=== PATIENT | female | born 1985 | race Caucasian/White ===

== ENCOUNTER → 2024-06-20 15:36 | Outpatient (REF) | payer OTHER, SELFPAY | LOC: WDC 15:36 | PROVIDERS: ATTENDING PHYSICIAN Advanced Practice Midwife; FAMILY PHYSICIAN Internal Medicine | DX: Z12.31 Encounter for screening mammogram for malignant neoplasm of breast (principal) | CPT/HCPCS: 77063; 77067 ==

== ENCOUNTER 2024-11-21 18:14 | Emergency (ER) | payer OTHER, SELFPAY ==
[2024-11-21 18:16] VITALS: BP 136/88
[2024-11-21 18:33] LABS: % Basophils 0.9 % (0-2); % Eosinophils 8.4 % (0-6); % Immature Granulocytes 0.1 % (0-0.5); % Lymphocytes 38.4 % (20.5-51.1); % Monocytes 7.5 % (1.7-9.3); % Neutrophils 44.7 % (42.2-75.2); Absolute Basophils 0.1 10^3/uL (0-0.2); Absolute Eosinophils 0.7 10^3/uL (0-0.7); Absolute Monocytes 0.6 10^3/uL (0.1-0.6); Absolute Neutrophils 3.4 10^3/uL (1.4-6.5); Hematocrit 41.3 % (37.0-47.0); Mean Corp Hgb Conc. 33.9 g/dL (33.0-37.0); Mean Corpuscular Hgb 31.1 pg (27.0-31.0); Mean Corpuscular Volume 91.8 fL (81.0-99.0); Mean Platelet Volume 9.5 fL (7.4-10.4); Nucleated Red Blood Cells % 0 %; Platelet Count 233 10^3/uL (130-400); Red Cell Dist. Width 12.9 % (11.5-14.5); White Blood Cell Count 7.7 10^3/uL (4.8-10.8)
[2024-11-21 18:47] LABS: HCG, Serum Qualitative Screen Negative
[2024-11-21 18:51] LABS: ALT (SGPT) 23 U/L (0-35); AST (SGOT) 25 U/L (14-36); Albumin 5.1 g/dl (3.5-5.0); Alkaline Phosphatase 52 U/L (38-126); Blood Urea Nitrogen 12 mg/dl (7-17); Calcium 9.6 mg/dl (8.4-10.2); Carbon Dioxide 24 mmol/L (22-30); Chloride 110 mmol/L (98-107); Glucose 90 mg/dl (70-99); Potassium 4.5 mmol/L (3.5-5.1); Sodium 141 mmol/L (135-145); Total Bilirubin 0.4 mg/dl (0.2-1.3); Total Protein 7.9 g/dl (6.3-8.2); eGFR > 60.00
[2024-11-21 18:52] LABS: Lipase 83 U/L (23-300)
[2024-11-21 23:30] VITALS: BMI 24.1
[2024-11-21] MEDS: PEPCID 20 MG PO (23:37)
[2024-11-21] MEDS: CARAFATE SUSPENSION 1 GM PO (23:37)
[2024-11-21 23:41] VITALS: BP 124/84
--- NOTE | 2024-11-21 23:42 | ED.GENMED ---
History of Present Illness
General
Chief Complaint: Abdominal Pain
Source: patient
Exam Limitations: none
Time Seen by Provider: 11/21/24 22:09
Nursing documentation reviewed up to this point in time: agreed with
History of Present Illness
History of Present Illness:
pt is a 39 y/o F with no sig pmh
here with 8 daysof post prandial epigastric pain
says she usually doesn't eat breakfast
so after lunch she has been noticing mild pain starting gradually
after dinner it is much more intesne
she ultimately is able to sleep but it hs been getting worse
she tried OTC pepto/tums and then started prilosex which she has been taking for 7 days without improvement
ate lunch today and decided to come in
no fever/chills/black stools (had some dark after pepto)
no cp, sob
no h/o GERD
Past History
Past History
ED Past Medical History: None
ED Past Surgical History: None
Social History
Tobacco: Non-smoker
Alcohol: Occasional
Drug: None
Personal:
Living: with family
Employment: Employed
Review of Systems
Review of Systems
Allergies reviewed?: Yes
All Other Systems: Not applicable
Phy Exam
Physical Exam
Physical Exam:
GENERAL: Alert , in no apparent distress
EYE: pupils equal and reactive
NECK: Supple
ENT: o/p clr, mmm.
CARDIAC: Regular rate and rhythm .
LUNGS: Clear breath sounds bilaterally, no acute respiratory distress, no wheezes/rales/rhonchi
ABDOMEN: Soft, very minimal epigastric tenderness, no r/g, no cvat, normal bowel sounds
NEUROLOGICAL: Alert and oriented, no focal neuro deficits
SKIN: Warm and dry, skin intact.
MUSCULOSKELETAL: No edema, well perfused.
PSYCH: Normal and appropriate interaction.
Course
Orders/Labs/Results
Orders:
Orders
11/21/24 18:19
Test Result ONCE
11/21/24 18:22
Complete Blood Count/With Diff Urgent
Comprehensive Metabolic Panel Urgent
HCG, Serum Qualitative Screen Urgent
Lipase Urgent
11/21/24 23:23
Famotidine [Pepcid] 20 mg PO NOW STA
Sucralfate Suspension [Carafate Suspension] 1 gm PO NOW STA
11/22/24 00:00
US Abdomen Complete/Upper Urgent
Reason For Exam: EPIGSATRIC PAIN AFTER EATING
Abnormal Lab Results
11/21/24
18:22
MCH 31.1 H pg
(27.0-31.0)
Eosinophils % 8.4 H %
(0-6)
Chloride 110 H mmol/L
(98-107)
Albumin 5.1 H g/dl
(3.5-5.0)
11/21/24 18:22
11/21/24 18:22
Vital Signs
Initial and Last Documented VS:
Initial Vital Signs
Temp Pulse Resp BP Pulse Ox
36.7 C 66 16 136/88 99
11/21/24 18:16 11/21/24 18:16 11/21/24 18:16 11/21/24 18:16 11/21/24 18:16
Last Documented Vital Signs
Temp Pulse Resp BP Pulse Ox
36.7 C 63 16 124/84 99
11/21/24 18:16 11/21/24 23:41 11/21/24 23:41 11/21/24 23:41 11/21/24 23:41
MDM/Problems Addressed
Differential Diagnosis Includes:
GASTRITIS, GASTRIC ULCER
MDM/Problems Addressed:
39 yo F
8 days postprandial pain epigastric
nonradiating
feels sharp
no nausea/vomiting/diarrhea
took pepto so stool was transietnly dark
tried otc meds but still getting pain
eventually pain improves
no smoking, stress
some alcohol
no nsaids
vitals stable
wella ppearing
minimal if any epigoastric tenderness
labs normal, reassuring hg and BUN, unlikely GI bleeding
US neg
likely needs endoscope
recommends protonix 40 mg daiyl
carafate
return as needed
*Critical Care Note
Total Time (30-74mins, 75-104mins- exclusive of procedures): Not Applicable
ED Attending Note
-
Portions of this chart may have been created with voice recognition software.� Occasional wrong word or��sound alike� substitutions may have occurred due to the inherent limitations of voice recognition software.
Discharge Plan
Departure
Patient Disposition: Home (Routine Discharge)
Date of Disposition: 11/22/24
Time of Disposition: 01:48
Patient with high blood pressure during this ER visit?: No
Condition: Fair
Covid-19: Not Applicable
Discharge Problem:
Gastritis
Instructions: Gastritis (DC)
Prescriptions:
New
pantoprazole [Protonix] 40 mg tablet,delayed release (DR/EC)
40 mg PO DAILY Qty: 30 0RF
sucralfate [Carafate] 1 gram tablet
1 g PO ACHS Qty: 20 0RF
Referrals:
Parish Ivory MD [Active] - Follow up in 10 days
NONE,* [Family Provider] -
Activity Restrictions/Additional Instructions:
YOUR SYMPTOMS COULD BE DUE TO GASTRITIS (INFLAMMATION OF THE WALL OF THE STOMACH) OR AN ULCER IN YOUR STOMACH
START TAKING PROTONIX 40 MG ONCE A DAY ON AN EMPTY STOMACH AND WAIT 1 HOUR BEFORE EATING
YOU CAN USE CARAFATE BEFORE MEALS NEEDED
PLEASE CALL YOUR GI DCOTOR FOR AN APPOINTMENT; IT CAN TAKE SOME TIME TO GET IN
RETURN FOR: SEVERE PAIN, FEVER, VOMITING, VOMITING BLOOD OR ANY CONCERNS.
Interventions
Interventions:
*Risk Screen - Suicide Last Done: 11/21/24 18:19
*General Assessment Last Done: 11/21/24 23:30
*Neglect/Abuse Screening Last Done: 11/21/24 18:19
*ED COVID-19 Vaccine History Last Done: 11/21/24 23:30
[facility] Assessment Last Done: 11/21/24 23:30
Discharge Date and Time
Print Language: [place]
== END 2024-11-22 02:03 | disposition home or self-care (01) ==
LOC: EMR 18:14
PROVIDERS: Student in an Organized Health Care Education/Training Program; EMERGENCY PHYSICIAN Emergency Medicine
DX: K29.70 Gastritis, unspecified, without bleeding (principal)
CPT/HCPCS: 99284; 76700; 80053; 83690; 84703; 85025